=== PATIENT | female | born 1965 | race Caucasian/White ===

== ENCOUNTER 2016-08-04 05:27 | Day surgery (SDC) | payer MEDICAID ==
[~2016-08-04 05:27] MED LIST: Dextrose 5%-0.45% NaCl 1,000 ML IV SCH; Sodium Chloride 0.9% 10 ML Syringe FLUSH PRN
[2016-08-04] MEDS ORDERED: Midazolam 1 MG/ML 2 ML SDV ONE (06:15)
[2016-08-04] MEDS ORDERED: fentaNYL 100 MCG/2 ML SDV ONE (06:15)
[2016-08-04] MEDS ORDERED: fentaNYL 100 MCG/2 ML SDV IV ONE ×3 (06:35→15:25)
[2016-08-04] MEDS ORDERED: Midazolam 1 MG/ML 2 ML SDV IV ONE ×6 (06:36→15:25)
--- NOTE | 2016-08-04 09:47 | OR ---
DATE: 08/04/2016 PROCEDURE: Total colonoscopy. INSTRUMENT USED: PCF-H180AL Olympus video colonoscope. PREMEDICATIONS: Fentanyl 100 mcg intravenous, Versed 4 mg intravenous. Nasal O2 cannula. The procedure was done under pulse oximetry, BP recording, and soda drier feeder. INDICATION: The patient with increasing constipation, unexplained, but not responsive to medical measures. Colonoscopic examination is done for detection of any polypoid lesions and removal, endoscopic hemostasis therapy if needed. DESCRIPTION OF PROCEDURE: Initial rectal exam was unremarkable. Rigid anoscopy was normal. The colonoscope was passed with ease to the ileocecal area, photographs were taken of the normal-appearing cecum, identified by double-bulged ileocecal folds. The examination was extremely compromised due to the presence of large amount of fecal material that had to be aspirated. No bleeding was noted from any of the visualized areas at the commencement of the examination. No stricture. No vascular ectasia. No large isolated ulcerations seen. No evidence of diffuse inflammatory bowel disease in the form of friability, contact bleeding, or ulcerations. No polyp or tumor mass identified. Probing the proximal sides of folds and flexures, using adequate distention and clearing up the stool material, withdrawal of the scope was made, cecum to rectum time was 6 minutes. No bleeding was noted from any of the visualized areas at the completion of examination. IMPRESSION: Normal study. The patient tolerated the procedure well. [facility] /[id number]
--- NOTE | 2016-08-04 10:11 | LETTER ---
08/04/2016 Viviana Cody [employer] [address], [address] [place] [address] RE: SOPHIE MORA : 1965 Dear Ms. Cody: Ms. Sophie Mora had colonoscopic examination done this morning and she tolerated the procedure well. I herewith send a copy of the endoscopy note and photographs for your review. Thank you. Sincerely, [facility] /[id number]
[2016-08-04 11:46] VITALS: BP 105/63
== END 2016-08-04 09:20 | disposition home or self-care (01) ==
LOC: DL.ENDO 05:27
PROVIDERS: ATTEND Internal Medicine Gastroenterology
DX: K59.00 Constipation, unspecified (principal); E66.9 Obesity, unspecified; E03.9 Hypothyroidism, unspecified; F31.9 Bipolar disorder, unspecified; Z90.710 Acquired absence of both cervix and uterus; Z98.890 Other specified postprocedural states; Z79.899 Other long term (current) drug therapy
CPT/HCPCS: 45378; J2250; J3010; J7042

== ENCOUNTER 2017-08-30 05:54 | Day surgery (SDC) | payer MEDICAID ==
[2017-08-30] MEDS ORDERED: Midazolam 1 MG/ML 2 ML SDV IV ONE ×5 (05:55→07:08)
[2017-08-30] MEDS ORDERED: fentaNYL 100 MCG/2 ML SDV IV ONE ×2 (05:55→07:03)
[2017-08-30] MEDS ORDERED: Dextrose 5%-0.45% NaCl 1,000 ML IV SCH (06:00)
[2017-08-30] MEDS ORDERED: Sodium Chloride 0.9% 10 ML Syringe FLUSH PRN (06:00)
[2017-08-30] MEDS ORDERED: fentaNYL 100 MCG/2 ML SDV ONE (06:15)
[2017-08-30] MEDS ORDERED: Midazolam 1 MG/ML 2 ML SDV ONE (06:15)
--- NOTE | 2017-08-30 08:05 | OR ---
DATE: 08/30/2017 PROCEDURE PERFORMED: Total colonoscopy. INSTRUMENT USED: CF-H180AL Olympus video colonoscope. PREMEDICATIONS: Fentanyl 100 mcg intravenous, Versed 3 mg intravenous. Nasal O2 cannula. The procedure was done under pulse oximetry, BP recording, and site monitor. INDICATION: The patient with alteration in bowel habits, unexplained, and not responsive to medical measures. Colonoscopic examination is done for detection of any polypoid lesions and removal, endoscopic hemostasis therapy if needed. DESCRIPTION OF PROCEDURE: Initial rectal exam was unremarkable. Rigid anoscopy was normal. The colonoscope was passed with ease up to the ileocecal area, photographs were taken of the normal-appearing cecum, identified by landmarks of appendiceal orifice and double-bulged ileocecal folds. No bleeding was noted from any of the visualized areas at the commencement of the examination. The bowel preparation was adequate. No stricture. No vascular ectasia. No large or isolated ulcerations seen. No evidence of diffuse inflammatory bowel disease in the form of friability, contact bleeding, or ulcerations. No polyp or tumor mass identified. Probing the proximal sides of folds and flexures, using adequate distention and clearing up the stool material, withdrawal of the scope was made, cecum to rectum time over 6 minutes. No bleeding was noted from any of the visualized areas at the completion of examination. IMPRESSION: Normal study. The patient tolerated the procedure well. [facility] /[id number]
[2017-08-30 09:43] VITALS: BP 116/64
== END 2017-08-30 09:21 | disposition home or self-care (01) ==
LOC: DL.ENDO 05:54
PROVIDERS: ATTEND Internal Medicine Gastroenterology
DX: R19.4 Change in bowel habit (principal); R19.7 Diarrhea, unspecified; E03.9 Hypothyroidism, unspecified; E66.09 Other obesity due to excess calories; F31.9 Bipolar disorder, unspecified; Z79.899 Other long term (current) drug therapy; Z91.010 Allergy to peanuts; Z91.018 Allergy to other foods; Z90.710 Acquired absence of both cervix and uterus; Z98.890 Other specified postprocedural states; M19.90 Unspecified osteoarthritis, unspecified site
CPT/HCPCS: 45378; J2250; J3010; J7042

== ENCOUNTER 2017-09-29 14:18 | Emergency (ER) | payer MEDICAID ==
[2017-09-29] MEDS ORDERED: Benzonatate 100 MG Cap PO ONE (17:09)
[2017-09-29 17:31] VITALS: BP 138/79
[2017-09-29] MEDS ORDERED: Azithromycin 250 MG Tab PO ONE (17:39)
--- NOTE | 2017-09-29 17:59 | EDM.PDOC ---
Scribed by Kathia Alejandro 09/29/17 [id number] for Stephen Vazquez MD ED HPI GENERAL MEDICAL PROBLEM - General Chief Complaint: Respiratory Problem Stated Complaint: hard time breathing [id number] Time Seen by Provider: 09/29/17 17:01 Source of Information: Reports: Patient, RN, RN Notes Reviewed History Limitations: Reports: No Limitations - History of Present Illness INITIAL COMMENTS - FREE TEXT/NARRATIVE: Pt c/o onset of cough, headache, sore throat, and nausea/vomiting x1 episode of emesis. Pt states she felt well yesterday. She felt that she was wheezing earlier today, but now is feeling somewhat better in general. Onset: Today Duration: Constant, Improving Location: Reports: Generalized Quality: Reports: Ache Severity: Moderate Improves with: Reports: None Worsens with: Reports: None Associated Symptoms: Reports: No Other Symptoms - Related Data Allergies Allergy/AdvReac Type Severity Reaction Status Date / Time [place] Allergy Hives Uncoded 08/30/17 06:05 environmental Allergy Hives Uncoded 08/30/17 06:05 peanuts Allergy Hives Uncoded 08/30/17 06:05 Home Meds: Home Meds Celecoxib [CeleBREX] 400 mg PO DAILY 10/05/14 [History] Hydrochlorothiazide 1 tab PO DAILY 10/05/14 [History] Levothyroxine [Synthroid] 50 mcg PO ACBREAKFAST 10/05/14 [History] hydrOXYzine HCl [Atarax] 1 tab PO DAILY PRN 10/05/14 [History] Cetirizine [ZyrTEC] 10 mg PO DAILY 08/02/16 [History] Ondansetron [IMW: Ondansetron ODT] 4 mg PO DAILY PRN 08/02/16 [History] Rizatriptan Benzoate [Rizatriptan] 10 mg PO ASDIRECTED PRN 08/02/16 [History] traZODone 50 mg PO BEDTIME 08/02/16 [History] Gabapentin [Neurontin] 100 mg PO ASDIRECTED 08/29/17 [History] buPROPion [buPROPion XL] 150 mg PO DAILY 08/29/17 [History] DULoxetine HCl [Duloxetine HCl] 1 cap PO DAILY 09/29/17 [History] Past Medical History HEENT History: Reports: Impaired Vision, Other (See Below) Other HEENT History: WEARS READERS PRN Cardiovascular History: Reports: None Respiratory History: Reports: None Gastrointestinal History: Reports: Chronic Constipation Genitourinary History: Reports: None [employer] History: Reports: Other OB/BYN History: heavy menses for 3 months Musculoskeletal History: Reports: Arthritis, Fracture, Fibromyalgia, Osteoarthritis, Other (See Below) Other Musculoskeletal History: DEGENERATIVE JOINT DISEASE. CRUSHING INJURY OF FOOT - LEFT. PATIENT DENIES DX OF FIBROMYALGIA Neurological History: Reports: Concussion, Headaches, Chronic, Neuropathy, Peripheral Psychiatric History: Reports: Anxiety, Bipolar, Mood Swings, Panic Attack, Other (See Below) Other Psychiatric History: DENIES DX OF BIPOLAR DISORDER, STATES SHE IS MANIC DEPRESSIVE Endocrine/Metabolic History: Reports: Hypothyroidism, Obesity/BMI 30+ Hematologic History: Reports: Anemia, Iron Deficiency Immunologic History: Reports: None Oncologic (Cancer) History: Reports: None Dermatologic History: Reports: Eczema, Urticaria - Infectious Disease History Infectious Disease History: Reports: Chicken Pox - Past Surgical History Head Surgeries/Procedures: Reports: None HEENT Surgical History: Reports: Oral Surgery Cardiovascular Surgical History: Reports: None Respiratory Surgical History: Reports: None GI Surgical History: Reports: Colonoscopy Female Surgical History: Reports: Section, Hysterectomy, Tubal Ligation, Other (See Below) Other Female Surgeries/Procedures: 10/05/14 Is scheduled for hysterectomy next week for heavy bleeding. HX OF HYSTERECTOY. HX OF CERVIX LESION DESTRUCTION-LSIL Endocrine Surgical History: Reports: None Neurological Surgical History: Reports: None Musculoskeletal Surgical History: Reports: None Oncologic Surgical History: Reports: None Dermatological Surgical History: Reports: None Social & Family History - Family History Family Medical History: Noncontributory - Tobacco Use Smoking Status *Q: Never Smoker Second Hand Smoke Exposure: No - Caffeine Use Caffeine Use: Reports: Soda Other Caffeine Use: DIET DEW 12 OZ CAN X2 DAILY AVERAGE - Living Situation & Occupation Living situation: Reports: with Family ED ROS GENERAL - Review of Systems Review Of Systems: ROS reveals no pertinent complaints other than HPI. ED EXAM, GENERAL - Physical Exam Exam: See Below Exam Limited By: No Limitations General Appearance: Alert, WD/WN, No Apparent Distress Eye Exam: Bilateral Eye: Normal Inspection Ears: Normal External Exam, Normal Canal, Hearing Grossly Normal, Normal TMs Nose: Normal Inspection, Normal Mucosa, No Blood Throat/Mouth: Normal Lips, Normal Teeth, Normal Gums, No Airway Compromise, Other (pharyngeal erythema, no exudates) Head: Atraumatic, Normocephalic Neck: Full Range of Motion, Other (shoddy cervical lymphadenopathy) Respiratory/Chest: No Respiratory Distress, No Accessory Muscle Use, Chest Non- Tender, Crackles, Other (course breath sounds). No: Rales, Rhonchi, Wheezing Cardiovascular: Normal Peripheral Pulses, Regular Rate, Rhythm, No Edema, No Gallop, No JVD, No Murmur, No Rub GI/Abdominal: Normal Bowel Sounds, Soft, Non-Tender, No Distention. No: Guarding, Rigid, Rebound (Female) Exam: Deferred Rectal (Female) Exam: Deferred Back Exam: Normal Inspection Extremities: Normal Inspection, Normal Range of Motion, Non-Tender, Normal Capillary Refill, No Pedal Edema Neurological: Alert, Oriented, CN II-XII Intact, Normal Cognition, Normal Gait, No Motor/Sensory Deficits Psychiatric: Normal Affect, Normal Mood Skin Exam: Warm, Dry, Intact, Normal Color, No Rash Course - Vital Signs Last Recorded V/S: Last Vital Signs Temp 36.8 C 09/29/17 17:30 Pulse 83 09/29/17 17:30 Resp 16 09/29/17 17:30 BP 138/79 09/29/17 17:30 Pulse Ox 96 09/29/17 17:30 - Orders/Labs/Meds Orders: Active Orders 24 hr Category Date Time Status Chest 2V [CR] Stat Exams 09/29/17 17:08 Taken CULTURE STREP A CONFIRMATION [RM] Stat Lab 09/29/17 17:18 Results STREP SCRN A RAPID W CULT CONF [RM] Stat Lab 09/29/17 17:18 Ordered Labs: Laboratory Tests 09/29/17 Range/Units 17:18 WBC 10.9 H (5.0-10.0) 10^3/uL RBC 4.92 (4.2-5.4) 10^6/uL Hgb 15.1 (12.0-16.0) g/dL Hct 43.1 (37.0-47.0) % MCV 87.6 (80-100) fL MCH 30.7 (27.0-34.0) pg MCHC 35.0 (33.0-35.0) g/dL Plt Count 205 (150-450) 10^3/uL Neut % (Auto) 81.1 H (42.2-75.2) % Lymph % (Auto) 13.0 L (20.5-50.1) % [place] % (Auto) 5.3 (2-8) % Eos % (Auto) 0.3 L (1.0-3.0) % Baso % (Auto) 0.3 (0.0-1.0) % Rapid strep: Negative. Meds: Medications Discontinued Medications Generic Name Dose Route Start Last Admin Trade Name Freq PRN Reason Stop Dose Admin Azithromycin 500 mg 09/29/17 17:39 Zithromax PO 09/29/17 17:40 ONETIME ONE Benzonatate 200 mg 09/29/17 17:09 09/29/17 17:30 Tessalon Perles PO 09/29/17 17:10 200 mg ONETIME ONE Administration - Radiology Interpretation Free Text/Narrative:: CXR: no acute process per Rad. report. Departure - Departure Time of Disposition: 17:55 Disposition: Home, Self-Care 01 Condition: Good Clinical Impression: Acute bronchitis Qualifiers: Bronchitis organism: unspecified organism Qualified Code(s): J20.9 - Acute bronchitis, unspecified Pharyngitis Qualifiers: Pharyngitis/tonsillitis etiology: unspecified etiology Qualified Code(s): J02.9 - Acute pharyngitis, unspecified - Discharge Information Instructions: Acute Bronchitis, Adult, [id number], Pharyngitis, [id number] Forms: ED Department Discharge Additional Instructions: RX: Zithromax 250mg. RX: Promethazine with codeine cough syrup. *DO NOT DRIVE WHILE UNDER THE INFLUENCE OF THIS MEDICATION. Follow up in clinic if not improving in 3 to 4 days. - My Orders Last 24 Hours: My Active Orders 09/29/17 17:08 Chest 2V [CR] Stat 09/29/17 17:18 CULTURE STREP A CONFIRMATION [RM] Stat STREP SCRN A RAPID W CULT CONF [RM] Stat - Assessment/Plan Last 24 Hours: My Active Orders 09/29/17 17:08 Chest 2V [CR] Stat 09/29/17 17:18 CULTURE STREP A CONFIRMATION [RM] Stat STREP SCRN A RAPID W CULT CONF [RM] Stat I have read and agree with the documentation that has been completed regarding this visit. By signing this record, I attest that the documentation was completed in my physical presence and is an accurate record of the encounter.
== END 2017-09-29 18:07 | disposition home or self-care (01) ==
LOC: DL.ED 14:18
DX: J20.9 Acute bronchitis, unspecified (principal); J02.9 Acute pharyngitis, unspecified; Z91.010 Allergy to peanuts; Z91.018 Allergy to other foods; Z79.899 Other long term (current) drug therapy
CPT/HCPCS: 36415; 71046; 85025; 87081; 87430; 99283; A9270